=== PATIENT | female | born 1960 | race Caucasian/White ===

== ENCOUNTER 2017-03-26 20:58 | Emergency (ER) | payer MEDICAID, OTHER ==
[2017-03-26] MEDS ORDERED: Ketorolac 60 MG/2 ML SDV IM ONE (21:27)
--- NOTE | 2017-03-26 21:35 | EDM.PDOC ---
ED HPI GENERAL MEDICAL PROBLEM - General Chief Complaint: Abdominal Pain Stated Complaint: LOWER ABDOMINAL PAIN Time Seen by Provider: 03/26/17 21:24 Source of Information: Reports: Patient History Limitations: Reports: No Limitations - History of Present Illness INITIAL COMMENTS - FREE TEXT/NARRATIVE: Patient is a 56-year-old female that presents to the emergency department via EMS this evening for complaint of lower abdominal and groin pain. Patient states that she was walking on her treadmill for approximately 30 minutes and developed the pain. Patient states that she started a new workout program and did walk on the treadmill last evening for approximately 60 minutes. Patient states that she has had similar discomfort previously and took gas ex for relief. Patient denies nausea, vomiting, diarrhea, dysuria, vaginal bleeding, fever, trauma to abdominal area, blood in stool, lower extremity pain or swelling. 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 Lower Anterior Abdominal Pain Score (Numeric/FACES): 10 - Related Data Allergies Allergy/AdvReac Type Severity Reaction Status Date / Time propranolol Allergy Anaphylactic Verified 03/26/17 21:32 Shock Sulfa (Sulfonamide Allergy Rash Verified 03/26/17 21:32 Antibiotics) sulfamethoxazole Allergy Rash Verified 03/26/17 21:06 [From Bactrim] trimethoprim [From Bactrim] Allergy Rash Verified 03/26/17 21:06 Home Meds: Home Meds Aspirin 325 mg PO DAILY 03/26/17 [History] Cholecalciferol (Vitamin D3) [Vitamin D3] 1 tab PO DAILY 03/26/17 [History] Estrogens, Conjugated [Premarin] 0.5 mg VAG ASDIRECTED 03/26/17 [History] Ibuprofen 600 mg PO TID 03/26/17 [History] L.acidoph,Paracasei, B.lactis [Probiotic] 1 tab PO DAILY 03/26/17 [History] Loratadine 1 tab PO DAILY 03/26/17 [History] Magnesium Oxide [Magnesium] 1 tab PO DAILY 03/26/17 [History] Multivitamin [Multivitamins] 1 tab PO DAILY 03/26/17 [History] Oxybutynin 1 tab PO BID 03/26/17 [History] Ranitidine HCl [Ranitidine] 150 mg PO DAILY 03/26/17 [History] Soy Isofl/Blk Coh/Gr Tea/Yerba [[employer]let] 1 tab PO DAILY 03/26/17 [History] 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 Constitutional: Reports: No Symptoms HEENT: Reports: No Symptoms Respiratory: Reports: No Symptoms Cardiovascular: Reports: No Symptoms Endocrine: Reports: No Symptoms GI/Abdominal: Reports: Abdominal Pain : Reports: No Symptoms Musculoskeletal: Reports: No Symptoms Skin: Reports: No Symptoms Neurological: Reports: No Symptoms Psychiatric: Reports: No Symptoms Hematologic/Lymphatic: Reports: No Symptoms Immunologic: Reports: No Symptoms ED EXAM, GI/ABD - Physical Exam Exam: See Below Exam Limited By: No Limitations General Appearance: Alert, WD/WN, No Apparent Distress Throat/Mouth: Normal Inspection, Normal Oropharynx, No Airway Compromise Head: Atraumatic, Normocephalic Respiratory/Chest: No Respiratory Distress, Lungs Clear, Normal Breath Sounds, No Accessory Muscle Use, Chest Non-Tender Cardiovascular: Regular Rate, Rhythm, No Murmur GI/Abdominal Exam: Normal Bowel Sounds, No Organomegaly, No Distention, No Abnormal Bruit, Tender (Suprapubic) Back Exam: Normal Inspection. No: CVA Tenderness (L), CVA Tenderness (R) Extremities: Normal Inspection, Other (Bilateral groin tenderness with lower extremity range of motion) Neurological: Alert, Oriented, Normal Cognition Psychiatric: Normal Affect, Normal Mood Skin Exam: Warm, Dry, Intact, Normal Color, No Rash Lymphatic: No Adenopathy Course - Vital Signs Last Recorded V/S: Last Vital Signs Temp 99.2 F 03/26/17 21:09 Pulse 94 03/26/17 21:09 Resp 20 03/26/17 21:09 BP 149/70 H 03/26/17 21:09 Pulse Ox 97 03/26/17 21:09 - Orders/Labs/Meds Orders: Active Orders 24 hr Category Date Time Status CBC WITH AUTO DIFF [HEME] Stat Lab 03/26/17 21:25 Ordered COMPREHENSIVE METABOLIC PN,CMP [CHEM] Stat Lab 03/26/17 21:25 Ordered UA W/MICROSCOPIC [URIN] Stat Lab 03/26/17 21:25 Uncollected Ketorolac [Toradol] Med 03/26/17 21:27 Once 60 mg IM ONETIME ONE - Re-Assessments/Exams Free Text/Narrative Re-Assessment/Exam: 03/26/17 22:16 Patient afebrile, nontoxic appearing, vital signs stable, discomfort relieved. Patient will follow-up with PCP tomorrow Departure - Departure Time of Disposition: 22:16 Disposition: Home, Self-Care 01 Condition: Good Clinical Impression: Abdominal pain Qualifiers: Abdominal location: lower abdomen, unspecified Qualified Code(s): R10.30 - Lower abdominal pain, unspecified Abdominal muscle strain Qualifiers: Encounter type: initial encounter Qualified Code(s): S39.011A - Strain of muscle, fascia and tendon of abdomen, initial encounter - Discharge Information Instructions: Abdominal Pain, Adult, [id number] Referrals: Jarred Anderson MD [Primary Care Provider] - Additional Instructions: Follow-up at [facility] tomorrow. Return to emergency room sooner if symptoms continues or worsens. - My Orders Last 24 Hours: My Active Orders 03/26/17 21:25 CBC WITH AUTO DIFF [HEME] Stat COMPREHENSIVE METABOLIC PN,CMP [CHEM] Stat UA W/MICROSCOPIC [URIN] Stat 03/26/17 21:27 Ketorolac [Toradol] 60 mg IM ONETIME ONE - Assessment/Plan Last 24 Hours: My Active Orders 03/26/17 21:25 CBC WITH AUTO DIFF [HEME] Stat COMPREHENSIVE METABOLIC PN,CMP [CHEM] Stat UA W/MICROSCOPIC [URIN] Stat 03/26/17 21:27 Ketorolac [Toradol] 60 mg IM ONETIME ONE Assessment:: Abdominal pain Plan: Follow-up at [facility] tomorrow
[2017-03-26 21:56] LABS: CHLORIDE,CL 102 mmol/L (98-115); SODIUM,NA 140 mmol/L (136-145)
[2017-03-26] MEDS ORDERED: Acetaminophen/oxyCODONE 325-5 MG Tab PO ONE (22:15)
--- NOTE | 2017-04-02 10:07 | HP ---
PATIENT PROFILE: The patient is a 56-year-old patient from [place], [place]. HISTORY OF PRESENT ILLNESS: This 56-year-old female patient presented to the emergency room via EMS last evening because of complaints of lower abdominal and groin pain. The patient stated that she was walking on a treadmill for approximately 30 minutes and then developed the pain. The patient stated that she started a new workout program and did walk on the treadmill last evening for approximately 60 minutes. The patient had similar discomfort before and took Gas-O for relief. She denied having nausea, vomiting, diarrhea, dysuria, vaginal bleeding, trauma to the abdominal area, blood in the stool, or lower extremity swelling. PAST SURGICAL HISTORY: Includes three C-sections, total hysterectomy except for the one ovary remaining. She is not sure which side. She also had a cholecystectomy. SOCIAL HISTORY: Tobacco use. She never was a smoker. No recreational usage. MEDICATIONS: Include aspirin 325 mg daily, vitamin D3, cholecalciferol one tab daily, conjugated estrogen 0.5 mg vaginally as per history given by the patient, ibuprofen 600 mg three times a day, lactic acidophilus one tablet daily, loratadine 1 tablet daily, magnesium oxide 1 tablet daily, multivitamin tablet one tablet daily, oxybutynin 1 tablet b.i.d., and ranitidine 150 mg daily. REVIEW OF SYSTEMS: HEAD AND NECK: No complaints. ENT: No complaints. MUSCULOSKELETAL: No complaints. ABDOMEN: Since yesterday, the patient developed more nausea, more vomiting, and then after being admitted to the hospital she had 900 mL emesis. The pain persisted in the lower abdomen right over the midline vertical scar. She does not feel nauseated at this time. EXTREMITIES: No complaints. NEUROLOGIC: No complaints. MUSCULOSKELETAL: No complaints. PHYSICAL EXAMINATION: GENERAL: Reveals a very pleasant patient in a mild to moderate amount of distress. VITAL SIGNS: Pulse 84, respirations 16, and blood pressure 150/80. HEENT: Head is negative. ENT, negative. HEART: Stable. LUNGS: Stable. ABDOMEN: Soft. There is distinct tenderness and redness of the skin noted in the subumbilical region in the midline. This is a vertical scar present of previous C-sections and possible hysterectomy. There is a tender mass present in this area. She has no rebound. Bowel sounds are normal. Liver and spleen not palpable. No other masses other than just dictated as possible. Femoral pulses are good. NEUROLOGIC: Intact. EXTREMITIES: Normal. LABORATORY DATA: CAT scan shows a possible incarcerated hernia in the anterior abdominal wall in the subumbilical region from previous surgical procedures. She has partial small-bowel obstruction. PLAN: The plan would be to explore this patient tonight under general anesthesia and relieve the obstruction. The operative procedure, anesthesia, risks of both were explained to the patient, who understands fairly well. She would like to proceed. Anesthetic complications will be handled by the correspondence school teacher. /[id number]/MODL
== END 2017-03-26 22:27 | disposition home or self-care (01) ==
LOC: KA.ED 20:58
DX: S39.011A Strain of muscle, fascia and tendon of abdomen, initial encounter (principal); Z90.49 Acquired absence of other specified parts of digestive tract; Z79.82 Long term (current) use of aspirin; Z79.899 Other long term (current) drug therapy; Y93.A1 Activity, exercise machines primarily for cardiorespiratory conditioning
CPT/HCPCS: 36415; 80053; 81001; 85025; 96372; 99283; A9270; J1885

== ENCOUNTER 2017-03-27 15:00 | Inpatient (IN) | payer MEDICAID ==
[2017-03-27] MEDS ORDERED: Sodium Chloride 0.9% 1,000 ML IV SCH ×2 (15:15→22:00)
[2017-03-27] MEDS: Ondansetron 4 MG/2 ML SDV IVPUSH PRN (15:29)
[2017-03-27] MEDS ORDERED: Iopamidol 612 MG/ML 75 ML Bottle IV PRN (16:18)
[2017-03-27] MEDS ORDERED: Sodium Chloride 0.9% 50 ML IV SCH (17:15)
[2017-03-27] MEDS ORDERED: Lidocaine 1% with EPINEPHrine 1:100,000 20 ML MDV ONE (18:49)
[2017-03-27] MEDS ORDERED: ceFAZolin 1 GM Vial ONE (18:50)
[2017-03-27] MEDS ORDERED: Midazolam 1 MG/ML 2 ML SDV ONE (18:50)
[2017-03-27] MEDS ORDERED: Propofol 200 MG/20 ML SDV ONE (18:50)
[2017-03-27] MEDS ORDERED: fentaNYL 250 MCG/5 ML SDV ONE (18:50)
[2017-03-27] MEDS ORDERED: Dexamethasone 4 MG/ML SDV ONE (18:50)
[2017-03-27] MEDS ORDERED: Glycopyrrolate 0.2 MG/ML 5 ML MDV IV ONE (19:01)
[2017-03-27] MEDS ORDERED: Lactated Ringers 1,000 ML IV ONE (19:01)
[2017-03-27] MEDS ORDERED: Ondansetron 4 MG/2 ML SDV IV ONE (19:01)
[2017-03-27] MEDS ORDERED: Propofol 200 MG/20 ML SDV IV ONE (19:01)
[2017-03-27] MEDS ORDERED: Midazolam 1 MG/ML 2 ML SDV IV ONE (19:01)
[2017-03-27] MEDS ORDERED: Neostigmine Methylsulfate 10 MG/10 ML MDV IV ONE (19:01)
[2017-03-27] MEDS ORDERED: fentaNYL 100 MCG/2 ML SDV IV ONE (19:01)
[2017-03-27] MEDS ORDERED: Dexamethasone 4 MG/ML SDV IV ONE (19:01)
[2017-03-27] MEDS ORDERED: Succinylcholine 200 MG/10 ML MDV IV ONE (19:01)
[2017-03-27] MEDS ORDERED: fentaNYL 250 MCG/5 ML SDV IV ONE (19:01)
[2017-03-27] MEDS ORDERED: Rocuronium 50 MG/5 ML Vial IV ONE (19:01)
[2017-03-27] MEDS ORDERED: ceFAZolin 1 GM Vial IV ONE (19:01)
[2017-03-27] MEDS ORDERED: Lactated Ringers 1,000 ML ONE ×2 (19:33→21:18)
[2017-03-27 20:22] LABS: CHLORIDE,CL 108 mmol/L (98-115); SODIUM,NA 143 mmol/L (136-145)
[2017-03-27] MEDS ORDERED: Lidocaine 1% with EPINEPHrine 1:100,000 20 ML MDV INFILT ONE (20:38)
[2017-03-27] MEDS ORDERED: fentaNYL 100 MCG/2 ML SDV ONE (21:22)
--- NOTE | 2017-03-27 21:57 | PCM.PRNOTE ---
- Free Text/Narrative Note: Preoperative diagnosis: Ventral abdominal hernia with possible incarceration. Postoperative diagnosis: As above Procedure performed: Release of incarcerated ventral abdominal hernia, release of partial small bowel obstruction, repair of ventral abdominal hernia, Appendectomy. Informed consent was obtained from the patient regarding this procedure. All possible complications were thoroughly discussed. The patient understands and wishes to proceed. She was taken to the operating room and kept in the supine position. He was performed and this showed anus rhythm. All labs and electrolytes were normal. 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 Her abdomen was thoroughly prepped and draped in the usual fashion. An incision was made directly over the previous incision in the sub-umbilical region and over the hernia. Careful subcutaneous dissection was performed. Incarcerated hernia was observed. The fascia was slightly enlarged proximally and distally and the hernia was opened. There was a loop of small bowel that was present within the hernia. This had a bluish discoloration. After the obstruction was released and the small bowel was washed with warm water, the color rapidly came back to normal. There was no concern for gangrene. The small bowel was run proximally and distally. No other obstructions or abnormalities were discovered. An appendectomy was then performed in the usual fashion by clamping the base of the appendix and suturing it with 0 Polysorb sutures. The meso appendix was ligated with 0 Polysorb suture. The appendix was excised and sent for histology. The sigmoid colon had many diverticuli and appendicis epiploicae. No other abnormalities were discovered in the abdomen or pelvis. The abdomen was irrigated with normal saline, most of which was aspirated out. The abdomen was then closed in layers using 1 Polysorb for the fascia. 3-0 Polysorb for the subcutaneous tissue and stainless steel clips for the skin. The procedure went well. Blood loss was approximately 25 mL. There were no intra operative complications. The patient was transferred to the recovery room in excellent condition.
[2017-03-27] MEDS ORDERED: Morphine 2 MG/ML Syringe IVPUSH PRN (21:59)
[2017-03-27] MEDS ORDERED: cefTRIAXone 1 GM in Sodium Chloride 0.9% 50 ML IV SCH (22:30)
[2017-03-27] MEDS: NS + KCl 20mEq/L 1,000 ML IV SCH (22:53)
[2017-03-27] MEDS: cefTRIAXone 1 GM Vial IVPUSH SCH (23:05)
[2017-03-27] MEDS: Morphine 2 MG/ML Syringe IVPUSH PRN (23:25)
[2017-03-28] MEDS ORDERED: EPINEPHrine 1:10,000 1 MG/10 ML Syringe IVPUSH PRN (00:55)
[2017-03-28] MEDS ORDERED: Lidocaine 2% 100 MG/5 ML Syringe IVPUSH PRN (00:55)
[2017-03-28] MEDS ORDERED: Atropine 0.1 MG/ML 10 ML Syringe IVPUSH PRN (00:55)
[2017-03-28] MEDS ORDERED: Nitroglycerin 0.4 MG Tab.SL SL PRN (00:55)
[2017-03-28] MEDS: Ondansetron 4 MG/2 ML SDV IVPUSH PRN (06:32)
[2017-03-28] MEDS: Morphine 2 MG/ML Syringe IVPUSH PRN (06:35)
[2017-03-28] MEDS: Pantoprazole 40 MG Vial IVPUSH SCH (06:40)
[2017-03-28] MEDS: NS + KCl 20mEq/L 1,000 ML IV SCH (07:32)
[2017-03-28 07:43] LABS: CHLORIDE,CL 108 mmol/L (98-115); SODIUM,NA 144 mmol/L (136-145)
--- NOTE | 2017-03-28 12:24 | PN ---
03/28/2017 PATIENT NAME: NAZ MCCORD The patient is status post ventral abdominal hernia repair along with status post appendectomy along with partial small bowel obstruction release. Date of surgery is March [address] Anderson as surgeon. The patient had successful perioperative and postoperative course so far. No complications. HISTORY: This is a 56-year-old female. She was seen and evaluated by Talon at the [facility] due to some concerns of some abdominal pain. 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 She started having lower abdominal pain on and off. Normally takes Gas-X, however, this time it did not give her relief. Pain was quite severe. She notified the ambulance, taken to the [facility] ED. She did have an elevated white count with a left shift. UA did show few bacteria with an alkaline phosphatase elevation at 141. She was given some Toradol with some improvement in symptoms and she was sent home with some hydrocodone, diagnosed with likely muscle strain. However, the patient continued to report ongoing worsening abdominal pain with associated chills, fever, and some nausea. Dull sharp pain into her abdomen, did not radiate. She did not have any constipation, diarrhea, or any UTI symptoms. She had an abdominal x-ray that appear to have dilated loops of bowel with step-like appearance suggesting possible obstruction. Official report of the abdominal x- ray showed scattered air-fluid levels with some mildly dilated loops of small bowel that could not exclude a small bowel obstruction. Subsequent CT was performed, which demonstrated small bowel obstruction with an incarcerated loop of the small bowel in the anterior abdominal wall. The patient was subsequently sent to the operating room. The patient had successful ventral hernia repair and release of incarcerated ventral abdominal hernia with an incidental appendectomy, also release of partial small bowel obstruction. Postoperatively, the patient has done well. She did not become hemodynamically unstable. Her temperature right now is 100.8, likely some atelectasis. Heart rate around 100. The patient denies any nausea, vomiting. She does have an NG tube present. However, this is clamped for the time being. LABS: 15.6, however, neutrophils are decreasing around 81% right now. Sodium and potassium normal. Glucose 114, calcium 8.5, magnesium 1.9. Renal indices normal. Troponin normal. PHYSICAL EXAMINATION: GENERAL: The patient is alert and oriented. She is comfortable. She has no pain. LUNGS: Do have some mild crackles, left lower base, likely atelectasis. CV: Heart rate about 100. S1 and S2. GI: Very little if any abdominal tones now. She does have an abdominal girth on. Dressings are dry. She does remain on telemetry. She does have PT waves, however, this is chronic for her. IMPRESSION AND PLAN: Status post ventral hernia repair with concomitant incarcerated ventral abdominal release with incidental appendectomy. The patient doing well from a surgical standpoint. We will increase her ambulation today. Continue clamping her NG tube, see how she does with this. Advance her diet to clear liquids today. Despite ambulation, we will place SCDs on. Consider Lovenox. Moderate risk. DVT prophylaxis. Continue with Rocephin. Pain control measures. Incentive spirometer. Good pulmonary toileting. Change fluids to LR at 75. Decrease potassium. Electrolytes in the morning. CBC in the morning. /[id number]/MODL
[2017-03-28] MEDS: Ondansetron 4 MG/2 ML SDV IVPUSH SCH ×2 (13:04→18:55)
[2017-03-28] MEDS: Lactated Ringers 1,000 ML IV SCH (13:04)
[2017-03-28] MEDS ORDERED: Enoxaparin 30 MG/0.3 ML Syringe SUBCUT SCH (13:30)
[2017-03-28] MEDS: Metoclopramide 10 MG/2 ML SDV IVPUSH SCH ×2 (14:55→19:47)
[2017-03-28] MEDS ORDERED: Bisacodyl 10 MG Supp RECTAL ONE (17:30)
[2017-03-28] MEDS: cefTRIAXone 1 GM Vial IVPUSH SCH (22:08)
[2017-03-29] MEDS: Metoclopramide 10 MG/2 ML SDV IVPUSH SCH ×3 (01:26→13:05)
[2017-03-29] MEDS: Ondansetron 4 MG/2 ML SDV IVPUSH SCH ×3 (01:26→13:04)
[2017-03-29] MEDS: Morphine 2 MG/ML Syringe IVPUSH PRN ×2 (01:26→07:30)
[2017-03-29] MEDS: Lactated Ringers 1,000 ML IV SCH (01:29)
[2017-03-29] MEDS: Pantoprazole 40 MG Vial IVPUSH SCH (07:28)
[2017-03-29 07:56] LABS: CHLORIDE,CL 102 mmol/L (98-115); SODIUM,NA 139 mmol/L (136-145)
[2017-03-29] MEDS ORDERED: Ketorolac 30 MG/ML SDV IVPUSH PRN (07:59)
[2017-03-29] MEDS ORDERED: Furosemide 40 MG/4 ML VIAL IVPUSH ONE (08:30)
--- NOTE | 2017-03-29 08:37 | PN ---
03/28/2017PATIENT NAME: NAZ MCCORD This is a very pleasant 56-year-old patient who came to the hospital yesterday with incarcerated ventral hernia. She also had partial small-bowel obstruction. She is doing much better this morning. PHYSICAL EXAMINATION: Her vital signs are stable at temperature of 100.7, pulse is 100, blood pressure is 134/85. Her intake is total 24-hour intake was 861, output 200. She is alert and well oriented to space, time, and person. HEART AND LUNGS: Stable. ABDOMEN: Soft. Bowel sounds are slow but present. Wounds are looking nice and clean. She has not had any flatus yet. LABORATORY: Her hemoglobin is 14.6, white count 15.6, yesterday it was 13.4 with 81.7 segs, lymphocytes 10.5, and 12.8 neutrophils. Sodium, potassium, and chloride are normal. BUN and creatinine are normal. FINAL DIAGNOSIS: Status post abdominal exploration for relief of incarcerated ventral abdominal hernia and appendectomy. First postop day, she is doing fairly well. No flatus yet. Continue IV fluids. Try to stop the NG tube later tonight or tomorrow morning. To continue Reglan and try to cut back morphine and increase ambulation and rectal suppository for stimulation of rectal peristalsis. /[id number]/MODL
--- NOTE | 2017-03-29 12:02 | PN ---
03/29/2017 PATIENT NAME: NAZ MCCORD CHIEF COMPLAINT: Feels that she is improving. She did have a bowel movement this morning. No abdominal pain. Dressings are dry. Afebrile. She has been ambulatory on the floor. She has also been seen by surgical followup by surgeon. She is doing well. Discontinued IV fluids today. Lasix was given. No surgical complications. HISTORY: This 56-year-old female who recently underwent surgery to repair incarcerated ventral hernia. She also went underwent a partial small bowel obstruction surgery along with an incidental appendectomy. PHYSICAL EXAMINATION: VITAL SIGNS: Temperature maximum past 24 hours 100.8, afebrile now; blood pressure 132/82; respirations 16%; O2 sats 95%. She is on room air. She does wear a CPAP. CV: Regular rate and rhythm. Non-tachycardic. LUNGS: Clear to auscultation. ABDOMEN: Soft. She has bowel tones, however, hypoactive. She does have an abdominal binder on covering her wounds. No discharge. Dressings are clean, dry, and intact. EXTREMITIES: Lower extremities, slightly edematous; however, this is chronic for the patient. She is status post vein ablation. LABORATORY DATA: White count 14,000, they are improving. Her neutrophils are slightly improving. Sodium, potassium, BUN, and creatinine, good. GFR greater than 60. Monitoring glucose, 114. Calcium normal. FINAL DIAGNOSIS: Status post abdominal exploration for relief of incarcerated ventral abdominal hernia and appendectomy. On postop day #2, she is improving. She did have a bowel this morning. Discontinued IV fluids. Lasix was given. Likely will discontinue nasogastric tube. Hopefully, we will advance her diet today. Increase in ambulation. Anticoagulation has stopped. However, she will get SCDs in bed. Continue with Rocephin. Continue with prokinetic. The patient is improving. /[id number]/MODL
[2017-03-29] MEDS ORDERED: traMADol 50 MG Tab PO PRN (15:18)
[2017-03-29] MEDS ORDERED: Ondansetron 4 MG/2 ML SDV IVPUSH PRN (15:21)
[2017-03-29] MEDS ORDERED: Metoclopramide 10 MG/2 ML SDV IVPUSH PRN (15:21)
[2017-03-29] MEDS: cefTRIAXone 1 GM Vial IVPUSH SCH (22:29)
[2017-03-30] MEDS: Pantoprazole 40 MG Vial IVPUSH SCH (08:05)
[2017-03-30 08:14] LABS: CHLORIDE,CL 100 mmol/L (98-115); SODIUM,NA 141 mmol/L (136-145)
--- NOTE | 2017-03-30 10:23 | PCM.DCSUM1 ---
Discharge Summary - Hospital Course Brief History: This is a 56 year old female who was admitted from the [facility] with suspected small bowel obstruction, leukocytosis and rule out sepsis. The patient had started having lower abdominal pain on 03/26/17 while on her stair-stepping machine. She had noted that she would have these pains occasionally, but they are typically relieved by Gas-X. This time the Gas-X did not help. She had presented to the [facility] ER that evening as the pain was severe. She was deemed to have a muscle strain. The patient returned to the clinic the following day and was fount to have a WBC of 15.6 with left shift, Alk phos of 130, and an abdominal x-ray that showed "Scattered air-fluid levels are seen within mildly dilated loops of small bowel. Small bowel obstruction not excluded." She was admitted as an inpatient and sent for a CT of the abdomen and pelvis. - Discharge Data Discharge Date: 03/30/17 Discharge Disposition: Home, Self-Care 01 Condition: Good - Patient Summary/Data Operative Procedure(s) Performed: Release of incarcerated ventral abdominal hernia, release of partial small bowel obstruction, repair of ventral abdominal hernia, appendectomy Complications: No post-operative complications Consults: Dr. Sagar Anderson, surgeon Labs Pending at D/C: Appendix pathology report pending Recommended Follow-up Testing/Procedures: Repeat CBC and LFTs. - Patient Instructions Diet: Regular Diet as Tolerated Activity: As Tolerated, Cough & Deep Breathe, No Lifting Over 10 Pounds, No Strenuous Activities, Rest and Relax Today Driving: Do Not Drive Showering/Bathing: May Shower, No Tub Bathing/Swimming Wound/Incision Care: Keep Operative Site/Wound Site Clean and Dry, Change Dressing Daily Notify Provider of: Fever, Increased Pain, Swelling and Redness, Drainage, Nausea and/or Vomiting (decreased bowel movements) Other/Special Instructions: No lifting over 10 pounds. No strenuous activity. Continue to wear the abdominal binder. - Discharge Plan Prescriptions/Med Rec: Cefdinir [Omnicef] 300 mg PO BID 7 Days #14 cap traMADol [Ultram] 50 mg PO Q6H PRN #10 tab PRN Reason: Pain Home Medications: Home Meds Aspirin 325 mg PO DAILY 03/26/17 [History] Cholecalciferol (Vitamin D3) [Vitamin D3] 1 tab PO DAILY 03/26/17 [History] Estrogens, Conjugated [Premarin] 0.5 mg VAG ASDIRECTED 03/26/17 [History] L.acidoph,Paracasei, B.lactis [Probiotic] 1 tab PO DAILY 03/26/17 [History] Loratadine 1 tab PO DAILY 03/26/17 [History] Magnesium Oxide [Magnesium] 1 tab PO DAILY 03/26/17 [History] Multivitamin [Multivitamins] 1 tab PO DAILY 03/26/17 [History] Oxybutynin 1 tab PO BID 03/26/17 [History] Ranitidine HCl [Ranitidine] 150 mg PO DAILY 03/26/17 [History] Soy Isofl/Blk Coh/Gr Tea/Yerba [[employer] Caplet] 1 tab PO DAILY 03/26/17 [History] Cefdinir [Omnicef] 300 mg PO BID 7 Days #14 cap 03/30/17 [Rx] Ibuprofen 600 mg PO TID PRN #0 03/30/17 [Rx] traMADol [Ultram] 50 mg PO Q6H PRN #10 tab 03/30/17 [Rx] Referrals: Teressa Bruno PA-C [Primary Care Provider] - 04/03/17 (Call on Saturday and make an appointment to see Teressa SWIFT on Saturday. ) - Discharge Summary/Plan Comment DC Time >30 min.: No Discharge Summary/Plan Comment: Date of admission: 03/27/17 Date of discharge: 03/30/17 Admitting diagnosis: Primary: Probable bowel obstruction, leukocytosis, rule out sepsis, elevated LFTs Secondary: History of migraines, GERD Final diagnosis: Primary: S/P ventral abdominal hernia repair, S/P small bowel obstruction release, S/P appendectomy; Leukocytosis, resolving Secondary: History of migraines, GERD Procedures performed: Release of incarcerated ventral abdominal hernia, release of partial small bowel obstruction, repair of ventral abdominal hernia, appendectomy Hospital Course: The patient had a CT of the abdomen/pelvis on admission which confirmed "Small bowel obstruction related to anterior abdominal wall hernia with incarcerated small bowel." She had an magnesium of 1.9 and troponin <0.04 on admission. An OR team was assembled and on the evening of her admission she was taken to the OR by Dr. Sagar Anderson for the above mentioned surgery. Operative note notes no intra-operative complications. The patient was then transferred to the recovery room where she recovered without incident. The patient remained hemodynamically stable throughout her stay. She did run a slight fever up to 100.8F, which was thought to be related to atelectasis. She was given an incentive spirometer. She was placed on IV rocephin post-op. She was given IV lactated ringer's solution. She was given IV reglan to stimulate her bowels. Her heart rate did run 90-100s during her stay. The patient had an NG tube placed prior to surgery and this was discontinued on post-op day 2. She was initially given a clear liquid diet and advanced slowly through full liquids and up to a soft diet. She did well with oral intake and had no nausea or vomiting. She was up ambulating in the halls without incident. She was able to produce several bowel movements prior to discharge. Her intake and output were adequate. She was given IV protonix for GI protection. She had a daily dressing change and an abdominal binder in place at all times. Pertinent discharge labs include WBC 12.6 with neutrophils of 72.4%, creatinine 0.75, GFR >60, potassium 3.8, sodium 141. New medications on discharge: -Cefdinir 300 mg po BID x 5 days -Tramadol 50 mg po every 6 hours PRN for pain New changes to home medications on discharge: -Ibuprofen 600 mg TID PRN Regular home medications on discharge: -Zantac 150 mg po daily -Oxybutynin 5 mg po BID -Mulitvitamin 1 tab po daily -Magnesium oxide 400 mg po daily -Aspirin 325 mg po daily -Premarin 0.5 g vaginally every other day -Probiotic 1 tab po daily -Estroven Energey Max 1 tab po daily -Loratadine 10 mg po daily -Vitamin D3 5000 units po daily Condition, Treatment, and Final Disposition: The patient is in stable condition at the time of discharge. She will be discharged home today with her son. I have instructed her on daily dressing changes, continued wearing of the abdominal binder, no lifting beyond 10 pounds, and no driving until her follow- up appointment. She will see JENIFFER You this week in follow-up. Considerations at follow-up would include repeating CBC and LFTs to ensure resolution. - General Info Date of Service: 03/30/17 Subjective Update: Patient states she is feeling well. Reports minimal abdominal tenderness. She is belching and having flatus. She reports a good sized BM this morning. Functional Status: Reports: Pain Controlled, Tolerating Diet, Ambulating, Urinating, Incentive Spirometry - Review of Systems General: Reports: Weakness. Denies: Fever, Chills Pulmonary: Denies: Shortness of Breath, Cough Cardiovascular: Denies: Chest Pain, Edema Gastrointestinal: Reports: Abdominal Pain (minimal). Denies: Constipation, Decreased Appetite, Diarrhea, Nausea, Vomiting Genitourinary: Reports: No Symptoms Skin: Reports: Other (Tenderness to midline abdominal incision) - Patient Data Vitals - Most Recent: Last Vital Signs Temp 98.8 F 03/30/17 06:15 Pulse 90 03/30/17 06:15 Resp 18 03/30/17 06:15 BP 134/83 03/30/17 06:15 Pulse Ox 93 L 03/30/17 06:15 Weight - Most Recent: 161 lb I&O - Last 24 hours: Intake & Output 03/29/17 03/30/17 03/30/17 22:59 06:59 14:59 Intake Total 620 50 Output Total 400 350 Balance 220 -300 Lab Results - Last 24 hrs: Laboratory Results - last 24 hr 03/30/17 03/30/17 Range/Units 07:00 07:00 WBC 12.6 H (5.0-10.0) 10^3/uL RBC 4.89 (3.80-5.50) 10^6/uL Hgb 14.6 (12.0-16.0) g/dL Hct 44.3 (37.0-47.0) % MCV 90.5 (82.0-92.0) fL MCH 29.9 (27.0-31.0) pg MCHC 33.0 (32.0-36.0) g/dL RDW 12.1 (11.5-14.5) % Plt Count 253 (150-300) 10^3/uL MPV 9.5 (7.4-10.4) fL Neut % (Auto) 72.4 H (50.0-70.0) % Lymph % (Auto) 15.1 L (20.0-40.0) % [place] % (Auto) 9.5 H (2.0-8.0) % Eos % (Auto) 2.2 (1.0-3.0) % Baso % (Auto) 0.8 (0.0-1.0) % Neut # (Auto) 9.1 H (2.5-7.0) 10^3/uL Lymph # (Auto) 1.9 (1.0-4.0) 10^3/uL [place] # (Auto) 1.2 H (0.1-0.8) 10^3/uL Eos # (Auto) 0.3 (0.1-0.3) 10^3/uL Baso # (Auto) 0.1 (0.0-0.1) 10^3/uL Sodium 141 (136-145) mmol/L Potassium 3.8 (3.3-5.3) mmol/L Chloride 100 (98-115) mmol/L Carbon Dioxide 29.9 (21.0-32.0) mmol/L BUN 13 (6-25) mg/dL Creatinine 0.75 (0.51-1.17) mg/dL Est Cr Clr Drug Dosing 63.20 mL/min Estimated GFR (MDRD) > 60 mL/min Glucose 106 (70-110) mg/dL Calcium 9.0 (8.7-10.3) mg/dL Med Orders - Current: Current Medications Ceftriaxone Sodium (Rocephin) 1 gm IVPUSH Q24H [facility] Last Admin: 03/29/17 22:29 Dose: 1 gm Ketorolac Tromethamine (Toradol) 30 mg IVPUSH Q8H PRN PRN Reason: Pain (moderate 4-6) Stop: 04/03/17 08:00 Last Admin: 03/29/17 13:04 Dose: 30 mg Metoclopramide HCl (Reglan) 5 mg IVPUSH Q6H PRN PRN Reason: Nausea/Vomiting Morphine Sulfate (Morphine) 2 mg IVPUSH Q2H PRN PRN Reason: Pain Last Admin: 03/29/17 07:30 Dose: 2 mg Ondansetron HCl (Zofran) 4 mg IVPUSH Q6H PRN PRN Reason: Nausea/Vomiting Last Admin: 03/29/17 18:00 Dose: 4 mg Pantoprazole Sodium (Protonix Iv) 40 mg IVPUSH ACBREAKFAST [facility] Last Admin: 03/30/17 08:05 Dose: 40 mg Tramadol HCl (Ultram) 50 mg PO Q6H PRN PRN Reason: Pain Last Admin: 03/29/17 19:50 Dose: 50 mg Discontinued Medications Atropine Sulfate (Atropine 0.1 Mg/Ml) 0 mg IVPUSH ASDIRECTED PRN PRN Reason: Heart Bisacodyl (Dulcolax) 10 mg RECTAL ONETIME ONE Stop: 03/28/17 17:31 Last Admin: 03/28/17 17:56 Dose: 10 mg Cefazolin Sodium (Ancef) Confirm Administered Dose 1 gm .ROUTE .STK-MED ONE Stop: 03/27/17 18:51 Last Admin: 03/28/17 00:12 Dose: Not Given Cefazolin Sodium (Ancef) 1 gm IV .STK-MED ONE Stop: 03/27/17 19:02 Dexamethasone (Dexamethasone) Confirm Administered Dose 4 mg .ROUTE .STK-MED ONE Stop: 03/27/17 18:51 Last Admin: 03/28/17 00:12 Dose: Not Given Dexamethasone (Dexamethasone) 4 mg IV .STK-MED ONE Stop: 03/27/17 19:02 Enoxaparin Sodium (Lovenox) 30 mg SUBCUT DAILY [facility] Last Admin: 03/28/17 14:55 Dose: 30 mg Epinephrine HCl (Epinephrine 1:10,000) 1 mg IVPUSH ASDIRECTED PRN PRN Reason: Heart Fentanyl (Sublimaze) Confirm Administered Dose 250 mcg .ROUTE .STK-MED ONE Stop: 03/27/17 18:51 Last Admin: 03/28/17 00:13 Dose: Not Given Fentanyl (Sublimaze) Confirm Administered Dose 100 mcg .ROUTE .STK-MED ONE Stop: 03/27/17 21:23 Last Admin: 03/28/17 00:14 Dose: Not Given Fentanyl (Sublimaze) 100 mcg IV .STK-MED ONE Stop: 03/27/17 19:02 Fentanyl (Sublimaze) 250 mcg IV .STK-MED ONE Stop: 03/27/17 19:02 Furosemide (Lasix) 20 mg IVPUSH NOW ONE Stop: 03/29/17 08:31 Last Admin: 02/02/18 08:30 Dose: 20 mg Glycopyrrolate (Robinul) 0.[address] ONE Stop: 03/27/17 19:02 Sodium Chloride (Normal Saline) 1,000 mls @ 100 mls/hr IV ASDIRECTED [facility] Last Admin: 03/27/17 17:12 Dose: 100 mls/hr Sodium Chloride (Normal Saline) 50 mls @ 4 mls/sec IV ASDIRECTED [facility] Stop: 03/27/17 23:59 Last Admin: 03/27/17 19:42 Dose: 3 mls/sec Lactated Ringer's (Ringers, Lactated) Confirm Administered Dose 1,000 mls @ as directed .ROUTE .[facility] ONE Stop: 03/27/17 19:34 Last Admin: 03/28/17 00:13 Dose: Not Given Lactated Ringer's (Ringers, Lactated) Confirm Administered Dose 1,000 mls @ as directed .ROUTE .[facility] ONE Stop: 03/27/17 21:19 Last Admin: 03/28/17 00:13 Dose: Not Given Sodium Chloride (Normal Saline) 1,000 mls @ 150 mls/hr IV ASDIRECTED [facility] Potassium Chloride/Sodium Chloride (Normal Saline With 20 Meq Kcl) 1,000 mls @ 100 mls/hr IV ASDIRECTED [facility] Last Admin: 03/28/17 07:32 Dose: 100 mls/hr Ceftriaxone Sodium 1 gm/ (Sodium Chloride) 50 mls @ 200 mls/hr IV Q24H [facility] Last Admin: 03/28/17 00:15 Dose: Not Given Lactated Ringer's (Ringers, Lactated) 1,000 mls @ 75 mls/hr IV ASDIRECTED [facility] Last Admin: 03/29/17 01:29 Dose: 75 mls/hr Lactated Ringer's (Ringers, Lactated) 1,000 mls @ as directed IV .[facility] ONE Stop: 03/27/17 19:02 Iopamidol (Isovue-300 (61%)) 75 ml IV . DIRECTED PRN PRN Reason: FOR RADIOLOGY EXAM Last Admin: 03/27/17 17:05 Dose: 75 ml Lidocaine HCl (Xylocaine 2%) 0 mg IVPUSH ASDIRECTED PRN PRN Reason: Heart Lidocaine/Epinephrine (Xylocaine 1% With Epinephrine 1:100,000) Confirm Administered Dose 20 ml .ROUTE .STK-MED ONE Stop: 03/27/17 18:50 Last Admin: 03/28/17 00:12 Dose: Not Given Lidocaine/Epinephrine (Xylocaine 1% With Epinephrine 1:100,000) 20 ml INFILT .STK-MED ONE Stop: 03/27/17 20:39 Last Admin: 03/27/17 20:38 Dose: 20 ml Metoclopramide HCl (Reglan) 5 mg IVPUSH Q6H [facility] Last Admin: 03/29/17 13:05 Dose: 5 mg Midazolam HCl (Versed 1 Mg/Ml) Confirm Administered Dose 2 mg .ROUTE .STK-MED ONE Stop: 03/27/17 18:51 Last Admin: 03/28/17 00:13 Dose: Not Given Midazolam HCl (Versed 1 Mg/Ml) 2 mg IV .STK-MED ONE Stop: 03/27/17 19:02 Morphine Sulfate (Morphine) 2 - 3 mg IVPUSH Q4H PRN PRN Reason: Abdominal Pain Neostigmine Methylsulfate (Neostigmine Methylsulfate) 4 mg IV .STK-MED ONE Stop: 03/27/17 19:02 Nitroglycerin (Nitrostat) 0.4 mg SL ASDIRECTED PRN PRN Reason: Heart Ondansetron HCl (Zofran) 4 mg IVPUSH Q4H PRN PRN Reason: Nausea/Vomiting Last Admin: 03/28/17 06:32 Dose: 4 mg Ondansetron HCl (Zofran) 4 mg IVPUSH Q6H [facility] Last Admin: 03/29/17 13:04 Dose: Not Given Ondansetron HCl (Zofran) 4 mg IV .STK-MED ONE Stop: 03/27/17 19:02 Propofol (Diprivan 20 Ml) Confirm Administered Dose 200 mg .ROUTE .STK-MED ONE Stop: 03/27/17 18:51 Last Admin: 03/28/17 00:12 Dose: Not Given Propofol (Diprivan 20 Ml) 200 mg IV .STK-MED ONE Stop: 03/27/17 19:02 Rocuronium [place] (Zemuron) 50 mg IV .STK-MED ONE Stop: 03/27/17 19:02 Succinylcholine Chloride (Quelicin) 120 mg IV .Mlog ONE Stop: 03/27/17 19:02 - Exam Quality Assessment: Reports: DVT Prophylaxis (SCDs). Denies: Supplemental Oxygen, Urine Catheter General: Reports: Alert, Oriented, Cooperative, No Acute Distress Lungs: Reports: Clear to Auscultation, Normal Respiratory Effort Cardiovascular: Reports: Regular Rhythm, No Murmurs, Tachycardia (90s) GI/Abdominal Exam: Soft, No Distention, Tender (generalized), Abnormal Bowel Sounds (Hyperactive BS x 4 quadrants) Extremities: No Pedal Edema Skin: Reports: Warm, Dry, Intact Wound/Incisions: Reports: Healing Well, Erythema Improving, Other (midline abdomina incision: chet intact, edges approximated, scant amount of serous drainage noted on dressing, minimal pink to red coloring around incision site) Neurological: Reports: Normal Speech Psy/Mental Status: Reports: Alert, Normal Affect, Normal Mood *Q Meaningful Use (DIS) - VTE *Q VTE Criteria *Q: - Stroke *Q Stroke Criteria *Q: - AMI *Q AMI Criteria *Q:
== END 2017-03-30 11:25 | disposition home or self-care (01) | DRG 336 ==
LOC: KA.MS 15:00
PROVIDERS: ADMIT Nurse Practitioner Family; ATTEND Family Medicine
PROC: 0WQF0ZZ Repair Abdominal Wall, Open Approach (ICD-10-PCS; principal; 2017-03-28)
PROC: 0DN80ZZ Release Small Intestine, Open Approach (ICD-10-PCS; 2017-03-28)
PROC: 0DTJ0ZZ Resection of Appendix, Open Approach (ICD-10-PCS; 2017-03-28)
DX: K43.6 Other and unspecified ventral hernia with obstruction, without gangrene (principal); K56.609 Unspecified intestinal obstruction, unspecified as to partial versus complete obstruction; D72.829 Elevated white blood cell count, unspecified; Z79.899 Other long term (current) drug therapy; Z88.8 Allergy status to other drugs, medicaments and biological substances
CPT/HCPCS: 36415; 74177; 80048; 82550; 82553; 83735; 84484; 85025; 93005; A9270-GY; C9113; J0330; J0690; J0696; J1100; J1650; J1885; J1940; J2250; J2270; J2405; J2704; J2710; J2765; J3010; J3480; J3490; J7030; J7050; J7120; Q9967